=== PATIENT | male | born 1970 | race Two or more races ===

== ENCOUNTER 2019-05-18 23:16 | Emergency (ER) | payer SELFPAY ==
[~2019-05-18] VITALS: Ht 177.8 cm; Wt 81.6 kg
[2019-05-18 23:44] LABS: FECAL OB PT NEGATIVE (NEG)
[2019-05-18] MEDS ORDERED: IV NORMAL SALINE 1000ML BAG 1,000 ML IV ONE (23:45)
[2019-05-18] MEDS ORDERED: PANTOPRAZOLE IV PUSH 40 MG VIAL. IVP ONE (23:45)
[2019-05-18 23:51] LABS: BASO % 0 % (0-3); EOS # 0.1 x10^3/uL (0.0-0.7); EOS % 1 % (0-3); HEMATOCRIT 48.8 % (39.0-53.0); LYMPH # 1.1 x10^3/uL (1.0-4.8); LYMPH % 18 % (24-48); MEAN CORPUSCULAR HEMOGLOBIN 32 pg (25-35); MEAN CORPUSCULAR HGB CONC 35 g/dL (31-37); MEAN CORPUSCULAR VOLUME 91 fL (79-100); MONO # 0.9 x10^3/uL (0.0-1.1); MONO % 16 % (0-9); NEUT # 3.9 x10^3/uL (1.8-7.7); NEUT % 65 % (31-73); PLATELET COUNT 244 x10^3/uL (140-400); RED BLOOD COUNT 5.39 x10^6/uL (4.30-5.70); RED CELL DISTRIBUTION WIDTH 13.6 % (11.5-14.5)
[2019-05-18 23:57] LABS: CALCIUM 8.9 mg/dL (8.5-10.1); GFR 79.8; POTASSIUM 4.1 mmol/L (3.5-5.1)
[2019-05-18 23:58] LABS: PROTHROMBIN TIME PATIENT 13.5 SEC (11.7-14.0)
--- NOTE | 2019-05-18 23:59 | PHYS DOC ---
Past Medical History Past Medical History: No Pertinent History Past Surgical History: No Surgical History Alcohol Use: Occasionally Drug Use: None Adult General Chief Complaint Chief Complaint: diarrhea HPI HPI Patient is a 48 year old male who presents with complaining of diarrhea. Patient states she had 4-5 episodes of diarrhea with light brown color and today had 5 or 6 episodes of black stool without abdominal pain, dizziness, nausea and vomiting, fever and chills, chest pain and shortness of breath. Patient denies history of the same problem, recent using of NSAIDS or antibiotic. Review of Systems Review of Systems Constitutional: Denies fever or chills [] Eyes: Denies change in visual acuity, redness, or eye pain [] HENT: Denies nasal congestion or sore throat [] Respiratory: Denies cough or shortness of breath [] Cardiovascular: No additional information not addressed in HPI [] GI: Denies abdominal pain, nausea, vomiting, reports bloody stools and diarrhea [] : Denies dysuria or hematuria [] Musculoskeletal: Denies back pain or joint pain [] Integument: Denies rash or skin lesions [] Neurologic: Denies headache, focal weakness or sensory changes [] Endocrine: Denies polyuria or polydipsia [] All other systems were reviewed and found to be within normal limits, except as documented in this note. Current Medications Current Medications Current Medications Medications (Trade) Dose Ordered Sig/Pattie Start Time Stop Time Status Last Admin Dose Admin Loperamide HCl (Imodium) 4 mg PRN Q15MIN PRN 05/19/19 00:30 05/19/19 00:37 4 MG Pantoprazole Sodium (PROTONIX VIAL for IV PUSH) 40 mg 1X ONCE 05/18/19 23:45 05/18/19 23:46 DC 05/18/19 23:51 40 MG Sodium Chloride 1,000 ml @ 1,000 mls/hr 1X ONCE 05/18/19 23:45 05/19/19 00:44 05/18/19 23:51 1,000 MLS/HR Allergies Allergies Allergies Coded Allergies Type Severity Reaction Last Updated Verified No Known Drug Allergies 05/18/19 No Physical Exam Physical Exam Constitutional: Well developed, well nourished, mild distress, non-toxic appearance. [] HENT: Normocephalic, atraumatic. Eyes: PERRLA, EOMI, conjunctiva normal, no discharge. [] Neck: Normal range of motion, no tenderness, supple, no stridor. [] Cardiovascular:Heart rate regular rhythm, no murmur [] Lungs & Thorax: Bilateral breath sounds clear to auscultation [] Abdomen: Bowel sounds normal, soft, no tenderness, no masses, no pulsatile masses. [] Skin: Warm, dry, no erythema, no rash. [] Back: No tenderness, no CVA tenderness. [] Extremities: No tenderness, no cyanosis, no clubbing, ROM intact, no edema. [] Neurologic: Alert and oriented X 3, no focal deficits noted. [] Psychologic: Affect normal, judgement normal, mood normal. [] Current Patient Data Vital Signs Vital Signs Date Time Temp Pulse Resp B/P (MAP) Pulse Ox O2 Delivery O2 Flow Rate FiO2 05/18/19 23:20 98.0 92 20 157/96 (116) 96 Room Air 98.0 Lab Values Laboratory Tests Test 05/18/19 23:30 05/18/19 23:40 Stool Occult Blood Negative (NEG) White Blood Count 6.0 x10^3/uL (4.0-11.0) Red Blood Count 5.39 x10^6/uL (4.30-5.70) Hemoglobin 17.0 g/dL (13.0-17.5) Hematocrit 48.8 % (39.0-53.0) Mean Corpuscular Volume 91 fL (79-100) Mean Corpuscular Hemoglobin 32 pg (25-35) Mean Corpuscular Hemoglobin Concent 35 g/dL (31-37) Red Cell Distribution Width 13.6 % (11.5-14.5) Platelet Count 244 x10^3/uL (140-400) Neutrophils (%) (Auto) 65 % (31-73) Lymphocytes (%) (Auto) 18 % (24-48) L Monocytes (%) (Auto) 16 % (0-9) H Eosinophils (%) (Auto) 1 % (0-3) Basophils (%) (Auto) 0 % (0-3) Neutrophils # (Auto) 3.9 x10^3/uL (1.8-7.7) Lymphocytes # (Auto) 1.1 x10^3/uL (1.0-4.8) Monocytes # (Auto) 0.9 x10^3/uL (0.0-1.1) Eosinophils # (Auto) 0.1 x10^3/uL (0.0-0.7) Basophils # (Auto) 0.0 x10^3/uL (0.0-0.2) Prothrombin Time 13.5 SEC (11.7-14.0) Prothrombin Time INR 1.1 (0.8-1.1) Activated Partial Thromboplast Time 32 SEC (24-38) Sodium Level 136 mmol/L (136-145) Potassium Level 4.1 mmol/L (3.5-5.1) Chloride Level 101 mmol/L (98-107) Carbon Dioxide Level 23 mmol/L (21-32) Anion Gap 12 (6-14) Blood Urea Nitrogen 12 mg/dL (8-26) Creatinine 1.0 mg/dL (0.7-1.3) Estimated GFR (Cockcroft-Gault) 79.8 BUN/Creatinine Ratio 12 (6-20) Glucose Level 108 mg/dL (70-99) H Calcium Level 8.9 mg/dL (8.5-10.1) Total Bilirubin 0.5 mg/dL (0.2-1.0) Aspartate Amino Transferase (AST) 37 U/L (15-37) Alanine Aminotransferase (ALT) 55 U/L (16-63) Alkaline Phosphatase 61 U/L (46-116) Total Protein 8.7 g/dL (6.4-8.2) H Albumin 4.0 g/dL (3.4-5.0) Albumin/Globulin Ratio 0.9 (1.0-1.7) L Laboratory Tests 05/18/19 23:40 Laboratory Tests 05/18/19 23:40 EKG EKG [] Radiology/Procedures Radiology/Procedures [][facility] [address] [place], [place] [id number] IMAGING REPORT Signed PATIENT: ROMAINE VILLANUEVA ACCOUNT: [id number] : 1970 LOCATION: ER AGE: 48 SEX: M EXAM STATUS: REG ER ORD. PHYSICIAN: VIVI MICHEL MD REASON: abdominal pain and diarrhea PROCEDURE: CT ABDOMEN PELVIS WO CONTRAST CT abdomen and pelvis without contrast: Reason for examination: Abdominal pain and diarrhea. Helical images were obtained through the abdomen and pelvis with no intravenous or oral contrast administered. Reconstruction was performed in sagittal and coronal planes. Exposure: One or more of the following individualized dose reduction techniques were utilized for this examination: 1. Automated exposure control 2. Adjustment of the mA and/or kV according to patient size 3. Use of iterative reconstruction technique. There is some linear atelectasis posteriorly at the left lung base. The heart size is normal with no pericardial effusion. No abnormality seen at the liver, spleen, adrenal glands, pancreas or gallbladder. The abdominal aorta and inferior vena cava show no acute abnormalities. Stomach contains a moderate amount of gastric content but no wall thickening. No abnormality seen in the duodenum. The small intestinal tract shows no abnormal dilatation or wall thickening or obstruction. There is no evidence of diverticulosis, diverticulitis or colitis. The appendix is not identified. The kidneys show no renal masses, renal calculi, hydronephrosis or evidence of obstructive uropathy. No abnormality seen at the bladder. There are calcifications in the prostate gland. Seminal vesicles are symmetric. No free fluid or free air seen in the abdomen or pelvis. IMPRESSION: Some linear atelectasis at the left lung base. Calcifications in the prostate gland. No other acute abnormality seen in the abdomen or pelvis. Electronically signed by: Rosanna Rouse MD (05/19/2019 12:12 AM) [facility] DICTATED and SIGNED BY: ROSANNA ROUSE MD DATE: 05/19/19 0012 Course & Med Decision Making Course & Med Decision Making Pertinent Labs and Imaging studies reviewed. (See chart for details) Evaluation of patient in ER showed 48 year old male patient with complaining of diarrhea for 2 days without vomiting and abdominal pain. Patient states that he had black stool but guaiac test was negative. Patient had unremarkable lab and CT of abdomen and pelvis and treated with IV fluid in ER. Plan discharge patient home to diagnose of viral diarrhea Alee Disclaimer Dragon Disclaimer This electronic medical record was generated, in whole or in part, using a voice recognition dictation system. Departure Departure Impression: Primary Impression: Diarrhea in adult patient Disposition: HOME, SELF-CARE (at 00 36) Condition: IMPROVED Patient Instructions: Diarrhea, Diet for Diarrhea, Adult Additional Instructions: Drink plenty of liquids Follow-up with your primary care physician in 3-5 days Return to ER if not getting better Do not eat solid food for 24 hours May take [id number] Imodium as needed for diarrhea VIVI MICHEL MD May 18, 2019 23:59
[2019-05-19 00:03] LABS: ALBUMIN/GLOBULIN RATIO 0.9 (1.0-1.7); TOTAL BILIRUBIN 0.5 mg/dL (0.2-1.0); TOTAL PROTEIN 8.7 g/dL (6.4-8.2)
[2019-05-19 00:15] VITALS: BP 141/82
--- NOTE | 2019-05-19 00:15 | RAD ---
CT abdomen and pelvis without contrast: Reason for examination: Abdominal pain and diarrhea. Helical images were obtained through the abdomen and pelvis with no intravenous or oral contrast administered. Reconstruction was performed in sagittal and coronal planes. Exposure: One or more of the following individualized dose reduction techniques were utilized for this examination: 1. Automated exposure control 2. Adjustment of the mA and/or kV according to patient size 3. Use of iterative reconstruction technique. There is some linear atelectasis posteriorly at the left lung base. The heart size is normal with no pericardial effusion. No abnormality seen at the liver, spleen, adrenal glands, pancreas or gallbladder. The abdominal aorta and inferior vena cava show no acute abnormalities. Stomach contains a moderate amount of gastric content but no wall thickening. No abnormality seen in the duodenum. The small intestinal tract shows no abnormal dilatation or wall thickening or obstruction. There is no evidence of diverticulosis, diverticulitis or colitis. The appendix is not identified. The kidneys show no renal masses, renal calculi, hydronephrosis or evidence of obstructive uropathy. No abnormality seen at the bladder. There are calcifications in the prostate gland. Seminal vesicles are symmetric. No free fluid or free air seen in the abdomen or pelvis. IMPRESSION: Some linear atelectasis at the left lung base. Calcifications in the prostate gland. No other acute abnormality seen in the abdomen or pelvis. Electronically signed by: Gilda Pagan MD (05/19/2019 12:12 AM) [facility]
[2019-05-19] MEDS ORDERED: LOPERAMIDE 2 MG CAPSULE PO PRN (00:30)
== END 2019-05-19 00:58 | disposition home or self-care (01) ==
LOC: ER 23:16
DX: R19.7 Diarrhea, unspecified (principal)
CPT/HCPCS: 36415; 74176; 80053; 82274; 85025; 85610; 85730; 87205; 87493; 96361; 96374; 99285; C9113; J7030